=== PATIENT | male | born 1980 | race Caucasian/White ===

== ENCOUNTER 2021-04-06 10:50 | Inpatient (IN) | payer BC, MEDICAID, SELFPAY ==
[2021-04-06 10:52] VITALS: BP 142/82; PULSE 94; RESP 16; TEMP 36.5; O2SAT 96; BMI 21.1
--- NOTE | 2021-04-06 11:09 | EDS_ITS ---
HPI History of Present Illness Chief Complaint: Substance Abuse Detail of Chief Complaint: Requesting detox from alcohol and abscess on left forearm Informant: patient Narrative Narrative: Patient presents to the emergency department complaint of wanting to detox from alcohol. Patient normally drinks 7-8 beers per day. Normally he gets very shaky once he starts to go through withdrawals. His last drink was about midnight. Patient denies any other illicit drug use. Patient complains of a lesion on his left forearm for several days that started to drain today. Denies fevers or recent illness. He is never gone through detox before. [facility] Medical History (Updated 04/06/21 @ 12:[address] uJlian Cisneros, DO) Alcohol abuse Herniated disc Staph skin infection Home Medications alprazolam 0.5 mg PO TID PRN PRN 04/06/21 [History Last Taken Unknown] cetirizine 10 mg PO DAILY 04/06/21 [History Last Taken Unknown] disulfiram 250 mg PO DAILY 04/06/21 [History Last Taken Unknown] Allergy/AdvReac Type Severity Reaction Status Date / Time citalopram AdvReac Upset Verified 04/06/21 11:00 Stomach Social History Smoking Status: Current every day smoker tobacco type: cigarettes ROS ROS ED Constitutional Constitutional ED: Reports systems reviewed and no addt'l complaints, except as documented; Denies body ache(s), change in weight or chills Eyes Eyes: Denies acute decrease in peripheral vision, change in vision, double vision or loss of vision ENT ENT ED: Reports none; Denies ear pain, lip swelling, loss taste/smell, neck pain, otalgia or sore throat Cardiovascular Cardiovascular: Reports none; Denies abdominal pain, chest pain with activity, leg edema, lightheadedness, palpitations, rapid heart rate or syncope Respiratory/Chest Respiratory/Chest: Reports none; Denies change in mental status, dry cough, dyspnea, hemoptysis, shortness of breath at rest or shortness of breath with exertion Gastrointestinal Gastrointestinal: Reports none; Denies abdominal pain, change in stool character, diarrhea, hematemesis, hematochezia, melena, rectal bleeding or vomiting Genitourinary Genitourinary ED: Reports none; Denies abdominal discomfort, anuria, dysuria, genital pain or polyuria Musculoskeletal Musculoskeletal: Reports none; Denies arthralgias, back pain, difficulty walking, extremity pain, muscle weakness or myalgias Integumentary Reports none and abscess; Denies rash Neurologic Neurologic: Reports none; Denies abnormal gait, confusion, focal weakness, frequent falls, headache(s), loss of vision, numbness, paresthesias, radicular pain, vertigo or weakness Psychiatric Psychiatric: Reports systems reviewed and no addt'l complaints, except as documented and none; Denies behavioral changes, confusion, difficulty concentrating, hallucinations, suicidal ideation, tactile hallucinations or visual hallucinations Endocrine Endocrinology: Denies none, cold intolerance, excessive sweating, fatigue or heat intolerance Hematologic/Lymphatic Hematologic/Lymphatic: Reports none; Denies anemia, easy bleeding or easy bruising Allergic/Immunologic Allergic/Immunologic ED: Denies as per HPI, none, lip swelling, mouth swelling, throat swelling, tongue swelling or hives EXAM Physical Exam Const Vital Signs: 04/06/21 10:52 04/06/21 12:31 Temperature 97.7 F L 98.2 F Temperature Source Temporal Temporal Pulse Rate 94 89 Respiratory Rate 16 16 Blood Pressure 142/82 H 138/79 H Blood Pressure Mean 102 98 Blood Pressure Source Monitor Blood Pressure Position Semi-Fowlers Blood Pressure Location Right Arm Pulse Ox 96 99 Oxygen Delivery Method Room Air Room Air Positive well nourished and well developed General Appearance ED: well developed and NAD HEENT Reports TM's clear and moist mucous membranes normocephalic and atraumatic; Negative for trauma or tenderness Tympanic Membrane ED: Yes TM's clear Eyes PERRL and EOMs intact bilaterally General Eye ED: Negative for pale conjunctiva or scleral icterus Neck no lymphadenopathy, supple and no JVD General: Negative for tenderness Chest Wall inspection of chest normal and palpation of chest normal Chest: Negative for tenderness Resp normal respiratory effort and clear to auscultation bilaterally Effort and Inspection: Negative for respiratory distress or pain with movement Auscultation: Negative for rhonchi, wheezes or diminished lung sounds Cardio regular rate, regular rhythm, S1 normal heart sound, S2 normal heart sound and no murmurs Peripheral Pulses: pulses 2+ throughout GI normal to inspection, nondistended, normoactive bowel sounds, soft to palpation, non-tender, non-distended and no masses Back/Spine no CVA tenderness and no thoracic nor lumbar tenderness Extremity Extremity Narrative: Evaluation of left forearm reveals a soft tissue abscess over the volar aspect of the mid forearm that is tender to palpation. Central portion slightly excoriated and draining. Minimal cellulitic changes noted. Neurovascular intact distally. General Extremety ED: Negative for edema General Extremity: Negative for edema Neuro oriented x3, CN's II-XII intact bilaterally, no sensory deficits noted and gait normal Sensorium / Orientation: awake, alert, oriented to person, oriented to place and oriented to time Motor Exam: strength 5/5 throughout and strength abnormal Psych mental status grossly normal Skin no rashes or lesions noted and no wounds MDM MDM MDM Narrative Medical decision making narrative: Case will be discussed with hospitalist evaluate patient for admission for alcohol detox. I did start patient on Keflex and Bactrim. Lab Data Attestation: I reviewed the patient's lab results. Labs: Laboratory Results - last 24 hr 04/06/21 12:20 WBC 8.9 RBC 4.33 L Hgb 13.3 Hct 41.1 MCV 94.9 H MCH 30.7 MCHC 32.4 RDW Std Deviation 41.3 RDW Coeff of [place] 11.8 Plt Count 259 MPV 10.2 Immature Gran % (Auto) 0.200 Neut % (Auto) 73.2 H Lymph % (Auto) 17.6 L [place] % (Auto) 6.7 Eos % (Auto) 1.7 Baso % (Auto) 0.6 Absolute Neuts (auto) 6.5 Absolute Lymphs (auto) 1.56 Nucleated RBC % 0 Procedures Other Procedures Procedure(s): Incision and drainage of abscess on left forearm Area sterilely draped and prepped. Wound anesthetized locally with 1% lidocaine total of 6 cc. Skin cleansed with Shur-Clens. Using an 11 blade a 1.5 cm in cision was made into the most fluctuant portion of the suspected abscess and moderate amount of thick purulent material was expressed. I used curved hemostats to undermine the soft tissues. Cavity was irrigated with saline. Clean dressing applied. Discharge Plan Dx/Rx/DC Orders Clinical Impression: Alcohol abuse, Withdrawn from alcohol detoxification program, Abscess Disposition Disposition: [facility]
--- NOTE | 2021-04-06 12:07 | CM.ED ---
SW Note Referral Source: Case Find Referral Reason: [facility] admission SW met with patient in his room. Patient reports that he is in the hospital for detox from alcohol. Patient said that this is his first time in [facility] program. Patient reports that for the last 2 months he has been trying to get better and related he has two young children and a baby on the way. Patient said that he has tried to cut back on his alcohol use and at times I can go 7-10 days without a drink. Patient said that when he drinks he drinks 7-8 drinks and I only drink [place] Lite. Patient said I don't drink to get drunk.. I can't remember the last time I got drunk. Patient said that he drinks to manage his anxiety as I got alot of things going on. Patient said I have been struggling. Patient said that he talked to Benjaminannette on Monday and they recommended that he go to detox first and then start a program. Patient reports he has tried to get into various inpatient AOD programs but insurance wouldn't approve. Patient said that he has [employer] insurance and [employer] insurance. Patient verbalized understanding of the contract for [facility] which includes no phone contact or visitors and patient verbalized understanding. Patient voiced no concerns regarding the program. Voices he is nervous but that the goal is for him to get better. SW provided emotional support. Plan: Admit to [facility]
--- NOTE | 2021-04-06 12:27 | HP.PCM.HOS_ITS ---
HPI - General General Date of Admission: 04/06/21 Date of Service: 04/06/21 Chief Complaint: EtOH withdrawal, L forearm abscess HPI Narrative The patient is a 40 y/o M w/ PMHx: EtOH abuse who presents to the [facility] on 04/06/21 w/ noted acute EtOH withdrawal, onset starting on day of ED presentation with normal intake of 8-10 beers daily following last EtOH intake near midnight the day prior with onset of tremors, agitation, tactile disturbances. Patient interested in attaining sober status for both himself and his family. He also reports onset of lump, red to his L forearm several days prior which started to drain purulent maternal on day of ED presentation. In the ED CBC, CMP, UDS, EtOH levels pending upon requested evaluation of the patient. In the ED patient administered oral keflex. Patient does state he presented for treatment primarily because he is attempting to repair his relationship with his spouse who is currently . He states he already has rehab in an outpatient setting set up for when he is appropriate for discharge. He states that currently he drinks approximately 7-10 beers ranging from 12 oz to 16 oz and has been more sparingly drinking over the last 5 years but more heavy over the last 2, nearly on a daily basis especially with recent potential relationship issues. [facility] Medical History Alcohol abuse Anxiety and depression Herniated disc Narcotic abuse in remission Staph skin infection Tobacco use Home Medications alprazolam 0.5 mg PO TID PRN PRN 04/06/21 [History Last Taken Unknown] cetirizine 10 mg PO DAILY 04/06/21 [History Last Taken Unknown] disulfiram 250 mg PO DAILY 04/06/21 [History Last Taken Unknown] Allergy/AdvReac Type Severity Reaction Status Date / Time citalopram AdvReac Upset Verified 04/06/21 11:00 Stomach Family History (Updated 04/06/21 @ 14:[address] Homa Mock MD) Mother Asthma Father Diabetes no surgical history Social History (Updated 04/06/21 @ 14:[address] Homa Mock MD) household members: spouse Smoking Status: Current every day smoker tobacco type: cigarettes alcohol intake: current Alcohol type: beer details: Patient drinks 8-10, 12-16 ounce beers daily, intake increasing x 5 years. substance use type: former substance user Date of last use: Reports percocet narcotic abuse history. and opiates ROS ROS Narrative Admission Review of Systems: CONSTITUTIONAL: No weight loss, fever, chills, + weakness or fatigue. HEENT: Eyes: No visual loss, blurred vision, double vision or yellow sclerae. Ears, Nose, Throat: No hearing loss, sneezing, congestion, runny nose or sore throat. SKIN: + LUE mild redness, abscess, TTP CARDIOVASCULAR: No chest pain, chest pressure or chest discomfort, palpitations, edema, orthopnea, syncopal events. RESPIRATORY: No shortness of breath, cough or sputum, wheezing, hemoptysis. GASTROINTESTINAL: + anorexia, nausea, No vomiting or diarrhea, abdominal pain, melena, BRBPR. GENITOURINARY: No dysuria, frequency, urgency or retention. NEUROLOGICAL: + Tremors, tactile disturbances, No headache, dizziness, syncope, paralysis, ataxia, focal weakness, change in bowel or bladder control, seizure. MUSCULOSKELETAL: + muscle, back pain, joint pain or stiffness. HEMATOLOGIC: No anemia, bleeding or bruising. LYMPHATICS: No enlarged nodes. No history of splenectomy. PSYCHIATRIC:+ history of depression or anxiety. ENDOCRINOLOGIC: No reports of sweating, cold or heat intolerance. No polyuria or polydipsia. ALLERGIES: No history of asthma, hives, eczema or rhinitis. Vital Signs Vital Signs Vital Signs: 04/06/21 10:52 Temperature 97.7 F L Temperature Source Temporal Pulse Rate 94 Respiratory Rate 16 Blood Pressure 142/82 H Blood Pressure Mean 102 Pulse Ox 96 Oxygen Delivery Method Room Air Weight Weight: 135 lb Body Mass Index (BMI) 21.1 Physical Exam Narrative Physical Examination: General: Awake, alert, oriented x 3 and cooperative, seated upright in the ED bed, mildly agitated, restless, moving frequently. Skin: Normal color, normal turgor, no icterus, no cyanosis except noted left upper extremity forearm with recent I&D of tissue abscess over the volar aspect of the midforearm, tender to palpation, mild pericellulitic change. HEENT: AT/NC, EOMI, PERRLA, moderately dry MM, no carotid bruits or JVD noted. Lungs: CTA bilaterally, moderate effort, mild decrease BL bases, no rales, ronchi or wheezing. Heart: Mildly tachycardic with regular rhythm; no gallop, rub audible. Abdomen: Soft, thin habitus, NTTP, ND, normal BS, no HSM. Extremities: No cyanosis, clubbing, or edema except left upper extremity, see skin. Neurological: Patient awake, alert, oriented as noted, cognitive function intact; pupils equally reactive to light and accommodation, cranial nerves II- XII grossly normal, moving all 4 extremities, no focal deficits, strength preserved, restless, mildly agitated, mild tremors. Psychiatric: Affect appears restless, anxious, no acute evidence of depressive feelings. Results Lab / Micro Data Result Diagrams: 04/06/21 12:20 04/06/21 12:20 Assessment & Plan Assessment/Plan (1) Abscess: (2) Alcohol abuse: PLAN: The patient is a 40 y/o M w/ PMHx: EtOH abuse who presents to the [facility] on 04/06/21 w/ noted acute EtOH withdrawal, onset starting on day of ED presentation with normal intake of 8-10 beers daily following last EtOH intake near midnight the day prior with additional history of recent LUE abscess with mild cellulitis. 1. Acute EtOH Withdrawal: Will admit to [facility], routine labs obtained in the ED upon presentation and pending upon requested evaluation of patient. Given interest in sobriety, will initiate and continue on protocol with taper course of Phenobarbital, scheduled gabapentin for seizure prophylaxis, as needed Catapres, Bentyl, Vistaril, IV fluids, IV antiemetics, Tylenol as needed for pain. Will consult Case management for assistance for transition to next level of rehabilitation care. Mag, phos pending. Maintain on CIWA protocol concurrently. 2. LUE Extremity Abscess and Mild Cellulitis: Will maintain on oral keflex and bactrim given substance history pending Wound Cx and Wound MRSA PCR, plan repeat CBC in AM, continue affected extremity elevation above heart when seated and in bed, monitor erythema outline with VS checks. De-escalate abx therapy as able. Wound RN consultation and dressings. 3. History of narcotic abuse: Patient denies any prior IV drug abuse but does state that he was in chronic pain management secondary to back pain for 7 years and following this did use purchased Percocet narcotics. He states he no longer abuses these medications however he then does state given recent left upper extremity abscess and cellulitis he did take 3 Percocets on day of current presentation and the day prior secondary to discomfort. UDS is pending upon requested admission. 4. Anxiety and depression: Patient does have history of significant anxiety and states that he was given recently Xanax medication but he is only been using this potentially twice a week. Discussed at length given his abuse history this is a very poorly chosen medicine given his history and very addictive. Discussed plan and given that he honestly states he uses it very rarely will discontinue and discussed plan for case management/social work to work with 180 for counseling and to plan initiation of appropriate SSRI versus SNRI at that time. He does state he had some mild GI side effects with potentially sertraline but unsure. 5. Allergic rhinitis: As needed Claritin if necessary. 6. Tobacco Abuse: Encouraged cessation, inpatient consultation per RT, NR if desired. 7. DVT prophylaxis: Encourage ambulation, low risk. Charges/Coding Visit Charges Inpatient E&M: 38483 Init Hosp L3
[2021-04-06 12:31] VITALS: BP 138/79; PULSE 89; RESP 16; TEMP 36.8; O2SAT 99
--- NOTE | 2021-04-06 12:32 | NURSING ---
DR DAVILA FOR DR MG
[2021-04-06 12:33] LABS: Absolute Lymphocyte Count 1.56 X10^3/uL (0.83-4.51); Absolute Neutrophil Count 6.5 X10^3/uL (2.0-7.7); Basophil# 0.05 X10^3/uL; Basophil% 0.6 % (0-1); Eosinophil# 0.15 X10^3/uL; Eosinophils% 1.7 % (0-5); Hematocrit 41.1 % (40-54); Hemoglobin 13.3 g/dL (13.0-16.5); Lymphocyte # 1.56 X10^3/ul (0.83-4.51); Lymphocyte % 17.6 % (19-41); Mean Corp Hgb Conc 32.4 g/dL (32-36); Mean Corpuscular Hgb 30.7 pg (27.0-32.0); Mean Corpuscular Volume 94.9 fL (80-94); Mean Platelet Vol. 10.2 fl (6.2-12.0); Monocyte# 0.59 X10^3/uL; Monocyte% 6.7 % (0-10); NRBC Flagged by Analyzer 0 % (0-5); Neutrophil # 6.48 X10^3/uL (2.7-7.7); Neutrophil % 73.2 % (47-70); Platelet Count 259 K/mm3 (150-450); RBC Distribution Width CV 11.8 % (11.6-14.6); RBC Distribution Width SD 41.3 fl (35.1-43.9); Red Blood Count 4.33 M/mm3 (4.6-6.2); White Blood Count 8.9 K/mm3 (4.4-11.0)
[2021-04-06 12:39] VITALS: BP 114/62; PULSE 64; RESP 16; TEMP 36.8; O2SAT 99
--- NOTE | 2021-04-06 12:40 | NURSING ---
MED SURG WHITE ETOH DETOX
[2021-04-06 13:00] LABS: ALB/GLOB Ratio 1.3 RATIO (0.9-2.4); AST(SGOT) 12 U/L (15-37); Alanine Aminotransfer ALT/SGPT 23 U/L (16-61); Albumin, Serum 3.8 g/dL (3.2-5.0); Alkaline Phosphatase 75 U/L (45-117); Anion Gap 3 (5-15); BUN 11 mg/dL (7-18); BUN/Creat Ratio 13.7 RATIO (10-20); Calcium,Total 8.4 mg/dL (8.5-10.1); Chloride 105 mmol/L (98-107); EST Glomerular Filtration Rate 114 mL/min (>60); Est Glom Filt Rate - Afr Amer 138 mL/min (>60); Estimated Creatinine Clearance 107.37 ml/min; Glucose 90 mg/dL (74-106); Potassium 4.1 mmol/L (3.5-5.1); Protein, Total 6.8 g/dL (6.4-8.2); Sodium Level 141 mmol/L (136-145)
[2021-04-06 13:06] LABS: Alcohol, Blood (Medical)-Serum < 3.0 mg/dL
[2021-04-06] MEDS: Smz/Tmp Ds Tablet 1 TABLET PO ×2 (13:07→22:08)
[2021-04-06] MEDS: Lidocaine 1% (20 ml mdv) 20 ML Vial 6 ML INFILT (13:07)
[2021-04-06] MEDS: Cephalexin 500 MG Capsule PO ×2 (13:07→18:55)
[2021-04-06 13:22] LABS: Magnesium 2.2 mg/dL (1.6-2.6); Phosphorus 4.2 mg/dL (2.5-4.9)
[2021-04-06 13:39] VITALS: BMI 21.9
[2021-04-06 13:44] VITALS: BP 122/74; PULSE 60; RESP 18; TEMP 36.6; O2SAT 100
[2021-04-06 13:52] LABS: HIV - WCH Non-Reactive (Nonreactive)
[2021-04-06 13:57] LABS: M R Staph aureus DNA By PCR POSITIVE (Negative); Probe Check PASS; Staph aureus DNA By PCR POSITIVE (Negative)
[2021-04-06] MEDS: Phenobarbital 32.4 MG Tablet 64.8 MG PO ×3 (14:07→22:08)
[2021-04-06] MEDS: Lactated Ringers 1,000 ML 125 ML IV (14:07)
[2021-04-06 14:59] LABS: Amphetamine Urine VISTA NEGATIVE (<1000 ng/mL); Barbiturate Urine VISTA NEGATIVE (< 200 ng/mL); Benzodiazepine Urine VISTA NEGATIVE (< 200 ng/mL); Cocaine Urine VISTA NEGATIVE (< 300 ng/mL); Ecstacy Urine VISTA NEGATIVE (< 500 ng/mL); Methadone Urine VISTA NEGATIVE (< 300 ng/mL); PCP Urine VISTA NEGATIVE (< 25 ng/mL); THC Urine VISTA NEGATIVE (< 50 ng/mL); Vista UDS pH Range 6
[2021-04-06 18:50] VITALS: O2SAT 99
[2021-04-06 21:50] VITALS: BP 122/74; PULSE 63; RESP 16; TEMP 37.1; O2SAT 98
[2021-04-06] MEDS: traZODone 100 MG Tablet PO (22:09)
[2021-04-07] MEDS: Cephalexin 500 MG Capsule PO ×4 (01:00→17:54)
[2021-04-07] MEDS: Phenobarbital 32.4 MG Tablet 64.8 MG PO ×6 (01:01→21:36)
[2021-04-07 01:02] VITALS: BP 112/65; PULSE 59; RESP 16; TEMP 36.9; O2SAT 99
[2021-04-07 05:25] VITALS: BP 118/71; PULSE 61; RESP 16; TEMP 36.9; O2SAT 98
--- NOTE | 2021-04-07 06:32 | PN.HOSP_ITS ---
Subjective Subjective Patient with no acute event overnight per self and per nursing report. He notes withdrawal symptoms have significantly improved and he slept very well. Patient's dressing was taken down and he does have some drainage, purulence still from the I&D site performed in the ED. Patient evaluated by wound RN and discussed with plan for placement of wick with expressed material. Erythema has significantly improved since initial ED presentation. Patient denies fevers, chills, nausea, emesis, abdominal pain, chest pain or dyspnea. Objective Data Objective Data Vital Signs: Vital Signs Temp Pulse Resp BP Pulse Ox 98.5 F 61 16 118/71 98 04/07/21 05:25 04/07/21 05:25 04/07/21 05:25 04/07/21 05:25 04/07/21 05:25 Oxygen Delivery Method Room Air Weight: 140 lb 1.59 oz Body Mass Index (BMI) 21.9 Intake & Output: Intake and Output for Last 24 Hours 04/05/21 04/06/21 04/07/21 23:59 23:59 23:59 Intake Total 1180 / 1680 500 / 500 Balance 1180 / 1680 500 / 500 Lab / Micro Data Result Diagrams: 04/07/21 07:03 04/07/21 07:03 Labs: Laboratory Results - last 24 hr 04/06/21 12:20: WBC 8.9, RBC 4.33 L, Hgb 13.3, Hct 41.1, MCV 94.9 H, MCH 30.7, MCHC 32.4, RDW Std Deviation 41.3, RDW Coeff of [place] 11.8, Plt Count 259, MPV 10.2, Immature Gran % (Auto) 0.200, Neut % (Auto) 73.2 H, Lymph % (Auto) 17.6 L, [place] % (Auto) 6.7, Eos % (Auto) 1.7, Baso % (Auto) 0.6, Absolute Neuts (auto) 6.5, Absolute Lymphs (auto) 1.56, Nucleated RBC % 0 04/06/21 12:20: Sodium 141, Potassium 4.1, Chloride 105, Carbon Dioxide 33.0 H, Anion Gap 3 L, BUN 11, Creatinine 0.80, Estim Creat Clear Calc 107.37, Est GFR (MDRD) Af Amer 138, Est GFR (MDRD) Non-Af 114, BUN/Creatinine Ratio 13.7, Gl ucose 90, Calcium 8.4 L, Total Bilirubin 0.20, AST 12 L, ALT 23, Alkaline Phosphatase 75, Total Protein 6.8, Albumin 3.8, Globulin 3.0, Albumin/Globulin R atio 1.3 04/06/21 12:20: Ethyl Alcohol < 3.0 04/06/21 12:20: Phosphorus 4.2, Magnesium 2.2 04/06/21 12:20: HIV 1&2 Antibody Non-Reactive 04/06/21 12:35: S.aureus Protein A PCR POSITIVE H, MRSA (PCR) POSITIVE H 04/06/21 14:00: Urine Opiates Screen POSITIVE H, Urine Methadone Screen NEGATIVE, Ur Barbiturates Screen NEGATIVE, Ur Phencyclidine Scrn NEGATIVE, Ur Amphetamines Screen NEGATIVE, U Methamphetamin-MDMA NEGATIVE, U Benzodiazepines Scrn NEGATIVE, Urine Cocaine Screen NEGATIVE, U Cannabinoids Screen NEGATIVE, Ur Drug Screen Comment Micro: Microbiology 04/06/21 12:35 Wound Abcess - Arm Left Gram Stain - Final Physical Exam Narrative Physical Examination: General: Awake, alert, oriented x 3 and cooperative, seated upright in the PCU bed, more calm, no acute distress. Skin: Normal color, normal turgor, no icterus, no cyanosis except noted left upper extremity forearm with recent I&D of tissue abscess over the volar aspect of the midforearm, waste machine tender to palpation, improvement of prior cellulitic region, some purulent material able to be expressed, wound RN evaluation ongoing with with being placed. HEENT: AT/NC, EOMI, PERRLA, improved MMM. Lungs: CTA bilaterally, moderate effort, mild decrease BL bases, no rales, ronchi or wheezing. Heart: Improved, regular rate and regular rhythm; no gallop, rub audible. Abdomen: Soft, thin habitus, NTTP, ND, normal BS. Extremities: No cyanosis, clubbing, or edema except left upper extremity, see skin. Neurological: Patient awake, alert, oriented as noted, cognitive function intact; pupils equally reactive to light and accommodation, cranial nerves II- XII grossly normal, moving all 4 extremities although some limitation left upper extremity given recent I&D, no focal deficits, strength preserved, improving. Psychiatric: Affect appears more calm, no acute evidence of depressive feelings. Assessment & Plan Assessment/Plan (1) Abscess: (2) Alcohol abuse: PLAN: The patient is a 40 y/o M w/ PMHx: EtOH abuse who presents to the [facility] on 04/06/21 w/ noted acute EtOH withdrawal, onset starting on day of ED pre sentation with normal intake of 8-10 beers daily following last EtOH intake near midnight the day prior with additional history of recent LUE abscess with mild cellulitis. 1. Acute EtOH Withdrawal: Patient admitted to medical surgical floor, routine labs obtained in the ED upon presentation including UDS with positive opiates, ethyl alcohol level unremarkable. Given interest in sobriety patient was initiated and continued on protocol with taper course of Phenobarbital, scheduled gabapentin for seizure prophylaxis, as needed Catapres, Bentyl, Vistaril, IV fluids, IV antiemetics, Tylenol as needed for pain. Will consult Case management for assistance for transition to next level of rehabilitation care. Mag, phos obtained and both noted to be normal. Maintain on CIWA protocol concurrently. 2. LUE Extremity MRSA Abscess and Cellulitis: Initiated on oral Keflex and Bactrim given history, wound culture pending, wound MRSA positive, continue extremity elevation, dressing changes, wound RN evaluation 04/07/2020 1 AM with ability to express additional material, with will be placed with continued dressing care. Will alter antibiotic regimen pending wound culture as noted. 3. History of narcotic abuse: Patient denies any prior IV drug abuse but does state that he was in chronic pain management secondary to back pain for 7 years and following this did use purchased Percocet narcotics. He states he no longer abuses these medications however he then does state given recent left upper extremity abscess and cellulitis he did take 3 Percocets on day of current presentation and the day prior secondary to discomfort. UDS with positive opiates. 4. Anxiety and depression: Patient does have history of significant anxiety and states that he was given recently Xanax medication but he is only been using this potentially twice a week. Discussed at length given his abuse history this is a very poorly chosen medicine given his history and very addictive. Discussed plan and given that he honestly states he uses it very rarely will discontinue and discussed plan for case management/social work to work with 180 for counseling and to plan initiation of appropriate SSRI versus SNRI at that time. He does state he had some mild GI side effects with potentially sertraline but unsure. 5. Allergic rhinitis: As needed Claritin if necessary. 6. Tobacco Abuse: Encouraged cessation, inpatient consultation per RT, NR if desired. 7. DVT prophylaxis: Encourage ambulation, low risk. Charges/Coding Visit Charges Inpatient E&M: 47098 Subs Hosp L2
[2021-04-07 07:14] LABS: Absolute Lymphocyte Count 1.88 X10^3/uL (0.83-4.51); Absolute Neutrophil Count 4.1 X10^3/uL (2.0-7.7); Basophil# 0.05 X10^3/uL; Basophil% 0.7 % (0-1); Eosinophil# 0.15 X10^3/uL; Eosinophils% 2.2 % (0-5); Hemoglobin 13.1 g/dL (13.0-16.5); Lymphocyte # 1.88 X10^3/ul (0.83-4.51); Mean Corp Hgb Conc 32.8 g/dL (32-36); Mean Corpuscular Hgb 30.6 pg (27.0-32.0); Mean Corpuscular Volume 93.5 fL (80-94); Mean Platelet Vol. 9.8 fl (6.2-12.0); Monocyte# 0.49 X10^3/uL; Monocyte% 7.3 % (0-10); NRBC Flagged by Analyzer 0 % (0-5); Neutrophil # 4.12 X10^3/uL (2.7-7.7); Neutrophil % 61.4 % (47-70); Platelet Count 233 K/mm3 (150-450); RBC Distribution Width CV 11.9 % (11.6-14.6); RBC Distribution Width SD 41.1 fl (35.1-43.9); Red Blood Count 4.28 M/mm3 (4.6-6.2); White Blood Count 6.7 K/mm3 (4.4-11.0)
[2021-04-07 07:47] LABS: ALB/GLOB Ratio 1.2 RATIO (0.9-2.4); AST(SGOT) 11 U/L (15-37); Alanine Aminotransfer ALT/SGPT 19 U/L (16-61); Albumin, Serum 3.4 g/dL (3.2-5.0); Alkaline Phosphatase 64 U/L (45-117); Anion Gap 4 (5-15); BUN 9 mg/dL (7-18); BUN/Creat Ratio 12.8 RATIO (10-20); Calcium,Total 8.3 mg/dL (8.5-10.1); Chloride 106 mmol/L (98-107); EST Glomerular Filtration Rate 132 mL/min (>60); Est Glom Filt Rate - Afr Amer 160 mL/min (>60); Estimated Creatinine Clearance 127.35 ml/min; Globulin 2.8 g/dL (2.2-4.2); Glucose 93 mg/dL (74-106); Potassium 3.9 mmol/L (3.5-5.1); Protein, Total 6.2 g/dL (6.4-8.2); Sodium Level 139 mmol/L (136-145)
[2021-04-07 08:37] VITALS: O2SAT 98
--- NOTE | 2021-04-07 09:04 | ADDICTION ---
This senior underwriter attempted to meet with PT to conduct ASAM, MSE, AUDIT assessments and to plan for d/c. PT did not rouse to 3x attempts at verbal queuing. This senior underwriter will attempt to meet with PT at next visit on 04/08/21.
[2021-04-07] MEDS: Multivitamins,Therapeutic Tablet 1 TABLET PO (10:30)
[2021-04-07] MEDS: Folic Acid 1 MG Tablet PO (10:30)
[2021-04-07] MEDS: Loratadine 10 MG Tablet PO (10:30)
[2021-04-07] MEDS: Thiamine Hydrochloride 100 MG Tablet PO (10:31)
[2021-04-07] MEDS: Smz/Tmp Ds Tablet 1 TABLET PO ×2 (10:31→18:02)
[2021-04-07] MEDS: Ibuprofen 600 MG Tablet PO ×2 (10:40→19:30)
--- NOTE | 2021-04-07 11:57 | NURSING ---
wound photo: left forearm
[2021-04-07] MEDS: Acetaminophen 325 MG Tablet 650 MG PO (12:57)
[2021-04-07 14:00] VITALS: BP 118/71; PULSE 61; RESP 16; TEMP 36.6; O2SAT 98
--- NOTE | 2021-04-07 15:38 | CHAPLAIN ---
Type of Pastoral Visit _x__ Initial Visit ___ Follow-up Visit ___ On-call Visit ___ General Patient Visit ___ Spiritual Assessment ___ Family Conference ___ Bereavement ___ Rapid Response ___ Code Blue ___ Other (describe below) Pastoral Care Referral From _x__ Patient ___ Family ___ Nurse ___ Physician ___ Sales Account Leader ___ Stenotype Machine Operator ___ Other (describe below) Sacrament/Intervention _x__ Active listening ___ Anointing ___ Adventist ___ Bereavement ___ Communion _x__ Anat exploration ___ _x__ Life review _x__ Prayer ___ Reconciliation ___ Sacrament of Sick _x__ Supportive presence ___ Wedding ___ Other (describe below) Pastoral Comments patient was sleeping but awoke to his name and he welcomed the visit; patient identifies himself as a Rastafarian and wants spiritual care support; pt gives much information about his situation including home life and family relationships; pt gives some life history and summary of his beliefs; pt goal is to come clean and to have family united; pt has thought processes to work on he says; pt states that he has many people that are supportive of him although he feels alone at this time; pt seeks guidance from the Bible and prayer; pt is open to further meetings of support with this online marketing coordinator; pt requested that his yard crane operator be contacted to notify of admission; yard crane operator was contacted although aware that no visitors are permitted at this time for pt
[2021-04-07 20:37] VITALS: BP 122/77; PULSE 86; RESP 16; TEMP 36.7; O2SAT 99
[2021-04-07] MEDS: hydrOXYzine PAM 25 MG Capsule 50 MG PO (20:42)
[2021-04-07] MEDS: traZODone 100 MG Tablet PO (21:35)
[2021-04-07] MEDS: 0.9% Saline Lock 10 ML Syringe IV (21:35)
[2021-04-08] MEDS: Cephalexin 500 MG Capsule PO ×3 (00:40→12:56)
[2021-04-08 02:35] VITALS: BP 109/68; PULSE 70; RESP 16; TEMP 36.5; O2SAT 96
[2021-04-08] MEDS: Phenobarbital 32.4 MG Tablet 64.8 MG PO ×3 (02:39→10:03)
--- NOTE | 2021-04-08 06:30 | PCM.PN.HOSP ---
Objective Data Objective Data Vital Signs: Vital Signs Temp Pulse Resp BP Pulse Ox 97.7 F L 70 16 109/68 96 04/08/21 02:35 04/08/21 02:35 04/08/21 02:35 04/08/21 02:35 04/08/21 02:35 Oxygen Delivery Method Room Air Weight: 140 lb 1.59 oz Body Mass Index (BMI) 21.9 Intake & Output: Intake and Output for Last 24 Hours 04/06/21 04/07/21 04/08/21 23:59 23:59 23:59 Intake Total 1180 / 1680 1300 / 1300 600 / 600 Balance 1180 / 1680 1300 / 1300 600 / 600 Lab / Micro Data Result Diagrams: 04/07/21 07:03 04/07/21 07:03 Labs: Laboratory Results - last 24 hr 04/07/21 07:03: WBC 6.7, RBC 4.28 L, Hgb 13.1, Hct 40.0, MCV 93.5, MCH 30.6, MCHC 32.8, RDW Std Deviation 41.1, RDW Coeff of [place] 11.9, Plt Count 233, MPV 9.8, Immature Gran % (Auto) 0.400, Neut % (Auto) 61.4, Lymph % (Auto) 28.0, [place] % (Auto) 7.3, Eos % (Auto) 2.2, Baso % (Auto) 0.7, Absolute Neuts (auto) 4.1, Absolute Lymphs (auto) 1.88, Nucleated RBC % 0 04/07/21 07:03: Sodium 139, Potassium 3.9, Chloride 106, Carbon Dioxide 29.0, Anion Gap 4 L, BUN 9, Creatinine 0.70, Estim Creat Clear Calc 127.35, Est GFR (MDRD) Af Amer 160, Est GFR (MDRD) Non-Af 132, BUN/Creatinine Ratio 12.8, Glucose 93, Calcium 8.3 L, Total Bilirubin 0.20, AST 11 L, ALT 19, Alkaline Phosphatase 64, Total Protein 6.2 L, Albumin 3.4, Globulin 2.8, Albumin/Globulin Ratio 1.2 Micro: Microbiology 04/06/21 12:35 Wound Abcess - Arm Left Gram Stain - Final 04/06/21 12:35 Wound Abcess - Arm Left Wound Culture - Preliminary Staphylococcus aureus
[2021-04-08 06:56] LABS: Absolute Lymphocyte Count 2.24 X10^3/uL (0.83-4.51); Absolute Neutrophil Count 3.8 X10^3/uL (2.0-7.7); Basophil# 0.04 X10^3/uL; Basophil% 0.6 % (0-1); Eosinophils% 2.9 % (0-5); Hematocrit 40.2 % (40-54); Hemoglobin 13.1 g/dL (13.0-16.5); Lymphocyte # 2.24 X10^3/ul (0.83-4.51); Lymphocyte % 32.7 % (19-41); Mean Corp Hgb Conc 32.6 g/dL (32-36); Mean Corpuscular Hgb 30.8 pg (27.0-32.0); Mean Corpuscular Volume 94.4 fL (80-94); Mean Platelet Vol. 10.1 fl (6.2-12.0); Monocyte# 0.55 X10^3/uL; NRBC Flagged by Analyzer 0 % (0-5); Neutrophil % 55.5 % (47-70); Platelet Count 251 K/mm3 (150-450); RBC Distribution Width CV 11.9 % (11.6-14.6); RBC Distribution Width SD 40.8 fl (35.1-43.9); Red Blood Count 4.26 M/mm3 (4.6-6.2); White Blood Count 6.9 K/mm3 (4.4-11.0)
[2021-04-08 07:29] LABS: ALB/GLOB Ratio 1.1 RATIO (0.9-2.4); AST(SGOT) 10 U/L (15-37); Alanine Aminotransfer ALT/SGPT 22 U/L (16-61); Albumin, Serum 3.3 g/dL (3.2-5.0); Alkaline Phosphatase 61 U/L (45-117); Anion Gap 6 (5-15); BUN 15 mg/dL (7-18); BUN/Creat Ratio 15.7 RATIO (10-20); Calcium,Total 7.9 mg/dL (8.5-10.1); Chloride 106 mmol/L (98-107); Creatinine, Serum 0.95 mg/dL (0.70-1.30); EST Glomerular Filtration Rate 93 mL/min (>60); Est Glom Filt Rate - Afr Amer 113 mL/min (>60); Estimated Creatinine Clearance 93.84 ml/min; Globulin 2.9 g/dL (2.2-4.2); Glucose 95 mg/dL (74-106); Potassium 3.9 mmol/L (3.5-5.1); Protein, Total 6.2 g/dL (6.4-8.2); Sodium Level 139 mmol/L (136-145)
[2021-04-08 08:30] VITALS: BP 119/66; PULSE 91; RESP 14; TEMP 36.8; O2SAT 100
--- NOTE | 2021-04-08 09:33 | ADDICTION ---
this senior copywriter met with PT to conduct ASAM, MSE, AUDIT, DUDIT assessments and to plan for d/c. PT A+Ox4 and actively participated. All assessments completed. D/c plan completed. PT to follow-up with [facility] for assessment and ongoing treatment. This senior copywriter will facilitate coordination with [facility] prior to d/c.
[2021-04-08] MEDS: Multivitamins,Therapeutic Tablet 1 TABLET PO (10:02)
[2021-04-08] MEDS: Thiamine Hydrochloride 100 MG Tablet PO (10:02)
[2021-04-08] MEDS: Smz/Tmp Ds Tablet 1 TABLET PO (10:02)
[2021-04-08] MEDS: Loratadine 10 MG Tablet PO (10:02)
[2021-04-08] MEDS: Folic Acid 1 MG Tablet PO (10:02)
[2021-04-08] MEDS: Ibuprofen 600 MG Tablet PO (10:19)
--- NOTE | 2021-04-08 11:41 | PCM.DC.SUM ---
Providers Date of Admission: 04/06/21 Primary Care Physician: Dr. Louie Rowe MD Consultations 04/06/21 13:38 Consult: Onc/Wound/styrene dehydration reactor operator Routine Comment: Reason For Visit: ACUTE ETOH WITHDRAWAL / LUE ABSCESS Diagnosis Discharge Diagnosis (1) Abscess: Status: Acute Code(s): L02.91 - Cutaneous abscess, unspecified (2) Alcohol abuse: Status: Acute Code(s): F10.10 - Alcohol abuse, uncomplicated Medications at Discharge Home Medications cetirizine 10 mg PO DAILY 04/06/21 nicotine 14 mg TRANSDERMAL DAILY 14 Days #14 ea 04/08/21 sulfamethoxazole-trimethoprim 1 tab PO BIDCM 12 Days #24 tab 04/08/21 Hospital Course Operations None Procedures - (ED I+D) Summary of Care Provided Minutes Spent on Discharge: 35 Hospital Course: Discharge Diagnoses: 1. Acute EtOH Withdrawal 2. LUE Extremity MRSA Abscess and Cellulitis 3. History of narcotic abuse 4. Anxiety and depression 5. Allergic rhinitis 6. Tobacco Abuse Discharge Summary: The patient is a 40 y/o M w/ PMHx: EtOH abuse who presents to the [facility] on 04/06/21 w/ noted acute EtOH withdrawal, onset starting on day of ED presentation with normal intake of 8-10 beers daily following last EtOH intake near midnight the day prior with additional history of recent LUE abscess with mild cellulitis. Patient admitted to medical surgical floor, routine labs obtained in the ED upon presentation including UDS with positive opiates, ethyl alcohol level unremarkable. Given interest in sobriety patient was initiated and continued on protocol with taper course of Phenobarbital, scheduled gabapentin for seizure prophylaxis, as needed Catapres, Bentyl, Vistaril, IV fluids, IV antiemetics, Tylenol as needed for pain. Mag, phos obtained and both noted to be normal. Patient upon ED presentation with evidence of left upper extremity abscess and cellulitis with I&D performed in the ED with wound culture and MRSA wound culture sent noted to be positive for MSRA eventually noted to be sensitive to Bactrim, initially placed on oral Keflex and Bactrim with dressing changes and wound RN evaluation. Patient does have history of significant anxiety and states that he was given recently Xanax medication but he is only been using this potentially twice a week. Discussed at length given his abuse history this is a very poorly chosen medicine given his history and very addictive. Discussed plan and given that he honestly states he uses it very rarely will discontinue and discussed plan for case management/social work to work with [facility] for counseling and to plan initiation of appropriate SSRI versus SNRI at that time. Patient noted feeling well and no further withdrawal symptoms therefore declined to remain for continued inpatient treatment noting he also had outpatient rehab already set up therefore patient discharged to home on continued regimen of Bactrim with continued dressing changes with education given including packing until completely resolved. Patient did decline wound care center offer. Strongly encouraged continued sobriety and clean state. Discharge Time: > 35 Minutes DAY OF DISCHARGE PROGRESS NOTE: Subjective: Patient without acute event overnight per self and nursing report. Patient patient does report discomfort of the left upper extremity, primarily with dressing change but improved, with less discharge and resolving cellulitis. Denies fever, chills, nausea, emesis, abdominal pain, chest pain or dyspnea. Patient specifically requesting discharge to home, declined remain for full treatment withdrawal program. Patient will be discharged with follow-up with primary care physician in addition to continue follow-up with [facility]. Objective: T 98.2, heart rate 91, BP 119/66, respiratory rate 14, and percent room air. Physical Examination: General: awake, alert, oriented x 3 and cooperative, seated upright in the bed, NAD. Skin: normal color, normal turgor, no icterus, no cyanosis except left upper extremity status post I&D with small incision, able to express minimal material, cleaned and iodoform packed, resolving cellulitis, resolving prior noted edema. HEENT: AT/NC, EOMI, PERRLA, MMM. Lungs: CTA bilaterally, moderate effort, mild decrease BL bases, no rales, ronchi or wheezing; Heart: Regular rate and rhythm; no gallop, rub audible. Abdomen: soft, NTTP, ND, normal BS. Extremities: no cyanosis, clubbing, or edema. Neurological: patient awake, alert, oriented x 3; cognitive function appears intact upon questioning,; pupils equally reactive to light and accomodation; cranial nerves II-XII grossly normal, moving all 4 extremities even left upper extremity although somewhat diminished given significant pain with recent dressing change, strength appropriate. Psychiatric: affect appears normal, adamantly states feeling appropriate for discharge and declines to stay for full withdrawal treatment program, no acute evidence of depressive or anxiety feelings currently, underlying history. Assessment and Plan: Please see hospital summary above. Weight / BMI Weight Weight: 140 lb 1.59 oz Body Mass Index (BMI) 21.9 ABG / Lab / Microbiology Data Result Diagrams: 04/08/21 06:35 04/08/21 06:35 Laboratory: Laboratory Results - last 24 hr 04/08/21 06:35: WBC 6.9, RBC 4.26 L, Hgb 13.1, Hct 40.2, MCV 94.4 H, MCH 30.8, MCHC 32.6, RDW Std Deviation 40.8, RDW Coeff of [place] 11.9, Plt Count 251, MPV 10.1, Immature Gran % (Auto) 0.300, Neut % (Auto) 55.5, Lymph % (Auto) 32.7, [place] % (Auto) 8.0, Eos % (Auto) 2.9, Baso % (Auto) 0.6, Absolute Neuts (auto) 3.8, Absolute Lymphs (auto) 2.24, Nucleated RBC % 0 04/08/21 06:35: Sodium 139, Potassium 3.9, Chloride 106, Carbon Dioxide 27.0, Anion Gap 6, BUN 15, Creatinine 0.95, Estim Creat Clear Calc 93.84, Est GFR (MDRD) Af Amer 113, Est GFR (MDRD) Non-Af 93, BUN/Creatinine Ratio 15.7, Glucose 95, Calcium 7.9 L, Total Bilirubin 0.20, AST 10 L, ALT 22, Alkaline Phosphatase 61, Total Protein 6.2 L, Albumin 3.3, Globulin 2.9, Albumin/Globulin Ratio 1.1 Microbiology: Microbiology 04/06/21 12:35 Wound Abcess - Arm Left Gram Stain - Final 04/06/21 12:35 Wound Abcess - Arm Left Wound Culture - Final Meth. resistant Staph. aureus D/C Instructions Discharge Diet: No restrictions Call your doctor if your incision/area has: Continuous Slow Oozing, Sudden Increased Bleeding, Increased Pain/ Swelling, Increased Redness, Foul Smelling Discharge and Swelling at the incision site Call your doctor if you observe: Fever of 101 or Higher, Numbness or Tingling, Shortness of breath, Dizziness, Fainting spells, Chest pain, Increased palpitations (irregular heartbeat) and Uncontrolled pain Meaningful Use Info Meaningful Use Diagnoses (Choose all that apply): None applicable Discharge Plan Admission Admit Date/Time: 04/06/21 13:04 Primary Reason for Your Visit: Acute EtOH withdrawal, LUE MRSA Abscess/Cellulitis Attending Provider: Homa Mock Primary Care Provider: Louie Rowe Instructions Patient Instructions: Alcoholism: Getting Help, Alcohol Addiction, Planning to Quit Smoking, Abscess Drainage, MRSA Infec Additional Instructions / Restrictions: DRESSING CHANGES: Please continue to perform daily dressing changes with iodoform packing as demonstrated in the hospital, 4 x 4 dry dressing and Kerlix wrap over preferably twice daily and as needed if dressing becomes soiled. Dressings may be discontinued once skin has completely healed or directed by a physician. If there is no region to pack then continue doing dry dressings with no packing at that time. Please assure that prior to each dressing you clean the region with soap and water, washing her hands of course before each dressing. IMPORTANT: DISCUSSED DO NOT TAKE XANAX. This has been stopped as you noted only having been on this medication for ~ 1 month and mentioned taking it only 1-2x per week. You are prone to become addicted to this type of medication and should not be taking this for anxiety. Other medications are available for anxiety and will be assessed at your follow-up with [facility]. Discharge Orders/Prescriptions Prescriptions: New nicotine 14 mg/24 hr Patch 24 Hour 14 mg transdermal DAILY 14 Days Qty: 14 RF: 0 sulfamethoxazole-trimethoprim 800-160 mg Tablet 1 tab PO BIDCM 12 Days Qty: 24 RF: 0 Continued cetirizine 10 mg tablet 10 mg PO DAILY RF: 0 Discontinued disulfiram 250 mg tablet 250 mg PO DAILY RF: 0 alprazolam 0.5 mg tablet 0.5 mg PO TID PRN PRN (Reason: Anxiety) RF: 0 Referrals / Follow Up: Louie Rowe MD [Primary Care Provider] - (Please follow-up within 3-5 days to review admission.) Disposition Disposition (needs filled in before D/C Order can be placed): Home, Self Care Charges/Coding Visit Charges Inpatient E&M: 05095 Disch Hosp
[2021-04-08 11:54] VITALS: O2SAT 96
[2021-04-09 12:09] LABS: HEPATITIS B SURFACE AG Negative (Negative); Hepatitis B Core AB IgM Negative (Negative); Hepatitis B Core Ab Total Positive (Negative); Hepatitis Be Ab Negative (Negative); Hepatitis Be Ag Negative (Negative); Hepatitis C Ab <0.1 s/co ratio (0.0-0.9)
[2021-04-09 13:33] LABS: Hep B Surface Antibodies Reactive (.)
== END 2021-04-08 13:46 | disposition home or self-care (01) | DRG 897 ==
LOC: ED 12:29 → PCU 17:04
PROVIDERS: Admitting Provider Family Medicine; Emergency Provider Emergency Medicine; PCP Family Medicine; Visit Provider Family Medicine
DX: F10.239 Alcohol dependence with withdrawal, unspecified (principal); L02.414 Cutaneous abscess of left upper limb; L03.114 Cellulitis of left upper limb; F17.210 Nicotine dependence, cigarettes, uncomplicated; F32.9 Major depressive disorder, single episode, unspecified; F41.9 Anxiety disorder, unspecified; J30.9 Allergic rhinitis, unspecified; A49.02 Methicillin resistant Staphylococcus aureus infection, unspecified site; F11.10 Opioid abuse, uncomplicated; Y90.9 Presence of alcohol in blood, level not specified
CPT/HCPCS: 10060; 36415; 80053; 80307; 82077; 83735; 84100; 85025; 86703; 86704; 86705; 86706; 86707; 86803; 87070; 87077; 87186; 87205; 87340; 87350; 87640; 97802; 99284; J7120; A4216

== ENCOUNTER 2022-02-14 11:41 | Inpatient (IN) | payer BC, MEDICAID, SELFPAY ==
[2022-02-14 11:42] VITALS: BP 132/74; PULSE 73; RESP 18; TEMP 36.4; O2SAT 100; BMI 21.9
--- NOTE | 2022-02-14 12:00 | EDS_ITS ---
HPI History of Present Illness Chief Complaint: ETOH Intox Informant: patient Narrative Narrative: Is a 41-year-old male with history of alcohol as well as opioid abuse and anxiety presenting with request for detox. Patient was admitted on 04/06 to the for alcohol detox. Patient states after that he went to [facility] into [facility]. He states he started drinking gradually couple months ago but is now drinking 8 to 1216 ounce [place] a day. He states he also had some type of mixed drink last night as well. Last drink was around midnight or 1 AM today. 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 He states he was fired from Suboxone because of his alcohol use but has been taking it regularly from a friend. He states he last had it yesterday. He states he normally takes it every other day if he can if not every few days. Patient does admit to using cocaine 2 days ago. Denies any other drug use. Vapes tobacco. Has no physical complaints at this time. States his plan is to go directly to [facility] after inpatient detox. He states he currently sees them for IOP and counseling as well. [facility] Medical History Abscess Alcohol abuse Alcohol abuse Anxiety and depression Herniated disc Narcotic abuse in remission Staph skin infection Tobacco use Withdrawn from alcohol detoxification program Home Medications cetirizine 10 mg PO DAILY 04/06/21 [History Last Taken Unknown] buspirone 10 mg PO BID 02/14/22 [History Last Taken Unknown] citalopram 40 mg PO DAILY 02/14/22 [History Last Taken Unknown] fluticasone propionate 2 spray INTRANASAL DAILY 02/14/22 [History Last Taken Unknown] lisdexamfetamine [Vyvanse] 70 mg PO DAILY 02/14/22 [History Last Taken Unknown] Allergy/AdvReac Type Severity Reaction Status Date / Time No Known Allergies Allergy Verified 02/14/22 11:44 Family History Mother Asthma Father Diabetes Social History household members: spouse Smoking Status: Current every day smoker tobacco type: e-cigarettes alcohol intake: current Alcohol type: beer details: Patient drinks 8-10, 12-16 ounce beers daily, intake increasing x 5 years. substance use type: former substance user Date of last use: Reports percocet narcotic abuse history. and opiates ROS ROS ED Constitutional Constitutional ED: Denies chills or fever(s) Eyes Eyes: Denies change in vision Cardiovascular Cardiovascular: Denies chest pain Respiratory/Chest Respiratory/Chest: Denies dyspnea Gastrointestinal Gastrointestinal: Denies abdominal pain or vomiting Musculoskeletal Musculoskeletal: Reports back pain; Denies arthralgias or myalgias Integumentary Denies rash Neurologic Neurologic: Denies headache(s) or weakness Psychiatric Psychiatric: Reports anxiety; Denies depression, suicidal ideation or suicidal thoughts EXAM Physical Exam Const Vital Signs: 02/14/22 11:42 Temperature 97.5 F L Temperature Source Temporal Pulse Rate 73 Respiratory Rate 18 Blood Pressure 132/74 H Blood Pressure Mean 93 Pulse Ox 100 Oxygen Delivery Method Room Air Positive well nourished and well developed General Appearance ED: well developed and NAD HEENT atraumatic Eyes PERRL and EOMs intact bilaterally Neck supple Chest Wall inspection of chest normal Resp normal respiratory effort and clear to auscultation bilaterally Cardio regular rate, regular rhythm and no murmurs GI soft to palpation and non-tender Extremity General Extremety ED: Negative for edema or tenderness General Extremity: Negative for edema Neuro oriented x3 Sensorium / Orientation: alert Gait (Neuro): normal gait Motor Exam: Negative for general weakness Psych mental status grossly normal and thought process normal Skin Lesions: no lesions Rashes: no rashes MDM MDM MDM Narrative Medical decision making narrative: Patient evaluated for request of alcohol detox. Patient also has regular Suboxone use that he gets through an acquaintance. Patient will be medically cleared. He currently is not having any active withdrawal symptoms. We will contact for admission. Discharge Plan Triage Chief Complaint: ETOH Intox Other Complaint: Substance Abuse ED Provider: Lauren Aguilera Dx/Rx/DC Orders Clinical Impression: Alcohol dependence, Opioid dependence Prescriptions: No Action cetirizine 10 mg tablet 10 mg PO DAILY RF: 0 citalopram 40 mg tablet 40 mg PO DAILY RF: 0 buspirone 10 mg tablet 10 mg PO BID RF: 0 fluticasone propionate 50 mcg/actuation spray,suspension 2 spray INTRANASAL DAILY RF: 0 Vyvanse 70 mg capsule 70 mg PO DAILY RF: 0 Primary Care Provider: Louie Rowe Referrals: Louie Rowe MD [Primary Care Provider] - Disposition Disposition: Acute Care Hospital [facility]
--- NOTE | 2022-02-14 12:31 | CM.ED ---
Social Work Note Reason for Referral: ETOH Detox SW met with pt. SW introduced self and role at [facility]. Pt states he is at [facility] for detox. Pt states that he has been admitted to detox before at [facility] and aware of the rules. Pt states that he has been drinking 8-12 beers daily. Pt states he is interested in residential treatment at discharge. SW placed a call to Leelee, Addiction therapist, and updated her on referral. Karen Godinez REAMING MACHINE OPERATOR FOR PLASTIC, INNERSOLE FITTER
[2022-02-14 12:32] LABS: Absolute Lymphocyte Count 1.99 X10^3/uL (0.83-4.51); Absolute Neutrophil Count 4.2 X10^3/uL (2.0-7.7); Basophil# 0.04 X10^3/uL; Basophil% 0.6 % (0-1); Eosinophil# 0.09 X10^3/uL; Eosinophils% 1.3 % (0-5); Hematocrit 38.9 % (40-54); Hemoglobin 12.9 g/dL (13.0-16.5); Lymphocyte # 1.99 X10^3/ul (0.83-4.51); Mean Corp Hgb Conc 33.2 g/dL (32-36); Mean Corpuscular Hgb 31.4 pg (27.0-32.0); Mean Corpuscular Volume 94.6 fL (80-94); Mean Platelet Vol. 9.3 fl (6.2-12.0); Monocyte# 0.57 X10^3/uL; Monocyte% 8.3 % (0-10); NRBC Flagged by Analyzer 0 % (0-5); Neutrophil # 4.15 X10^3/uL (2.7-7.7); Neutrophil % 60.5 % (47-70); Platelet Count 239 K/mm3 (150-450); RBC Distribution Width CV 11.8 % (11.6-14.6); RBC Distribution Width SD 40.3 fl (35.1-43.9); Red Blood Count 4.11 M/mm3 (4.6-6.2); White Blood Count 6.9 K/mm3 (4.4-11.0)
[2022-02-14 12:41] LABS: ALB/GLOB Ratio 1.2 RATIO (0.9-2.4); AST(SGOT) 16 U/L (15-37); Alanine Aminotransfer ALT/SGPT 23 U/L (16-61); Albumin, Serum 3.8 g/dL (3.2-5.0); Alkaline Phosphatase 62 U/L (45-117); Anion Gap 3 (5-15); BUN 12 mg/dL (7-18); BUN/Creat Ratio 16.6 RATIO (10-20); Calcium,Total 8.5 mg/dL (8.5-10.1); Chloride 99 mmol/L (98-107); Creatinine, Serum 0.72 mg/dL (0.70-1.30); EST Glomerular Filtration Rate 128 mL/min (>60); Est Glom Filt Rate - Afr Amer 154 mL/min (>60); Globulin 3.1 g/dL (2.2-4.2); Glucose 82 mg/dL (74-106); Potassium 4.3 mmol/L (3.5-5.1); Protein, Total 6.9 g/dL (6.4-8.2); Sodium Level 133 mmol/L (136-145)
[2022-02-14 12:58] VITALS: BP 132/74; PULSE 89; RESP 16; TEMP 36.6; O2SAT 98
--- NOTE | 2022-02-14 13:26 | HP.PCM.HOS_ITS ---
HPI - General General Date of Admission: 02/14/22 Date of Service: 02/14/22 Chief Complaint: Requesting treatment for opiate and alcohol dependence HPI Narrative RED YOU, is a 41 M who presents presents seeing treatment for opiate and alcohol dependence. Patient drinks 8-12 beers per day but can go a day without drinking but does focus on it but does not have any obvious physical withdrawal symptoms that he relates. Patient is also taking Suboxone that he gets on the street. States that he does have some days where he does not take any does feel agitated. Patient was contacted [facility] and they recommended admission here for acu te treatment for his opiate and alcohol dependence. Patient's last drink was last evening. [facility] Medical History Abscess Alcohol abuse Alcohol abuse Anxiety and depression Herniated disc Narcotic abuse in remission Staph skin infection Tobacco use Withdrawn from alcohol detoxification program Home Medications cetirizine 10 mg PO DAILY 04/06/21 [History Last Taken Unknown] buspirone 10 mg PO BID 02/14/22 [History Last Taken Unknown] citalopram 40 mg PO DAILY 02/14/22 [History Last Taken Unknown] fluticasone propionate 2 spray INTRANASAL DAILY 02/14/22 [History Last Taken Unknown] lisdexamfetamine [Vyvanse] 70 mg PO DAILY 02/14/22 [History Last Taken Unknown] Allergy/AdvReac Type Severity Reaction Status Date / Time No Known Allergies Allergy Verified 02/14/22 11:44 Family History (Updated 02/14/22 @ 13:[address] Red Campoverde DO) Mother Asthma Father Diabetes Alcohol abuse Social History household members: spouse Smoking Status: Current every day smoker tobacco type: e-cigarettes alcohol intake: current Alcohol type: beer details: Patient drinks 8-10, 12-16 ounce beers daily, intake increasing x 5 years. substance use type: former substance user Date of last use: Reports percocet narcotic abuse history. and opiates ROS ROS Narrative Anxious. Agitated. All review of systems were negative except as mentioned above in the history of present illness and the other review of systems. Vital Signs Vital Signs Vital Signs: 02/14/22 11:42 02/14/22 12:58 Temperature 36.4 C L 36.6 C Temperature Source Temporal Temporal Pulse Rate 73 89 Respiratory Rate 18 16 Blood Pressure 132/74 H 132/74 H Blood Pressure Mean 93 93 Pulse Ox 100 98 Oxygen Delivery Method Room Air Room Air Weight Weight: 63.503 kg Body Mass Index (BMI) 21.9 Physical Exam Const alert General Appearance: cooperative Resp normal respiratory effort, no retractions, no use of accessory muscles and clear to auscultation bilaterally Cardio regular rate, regular rhythm, S1 normal heart sound and S2 normal heart sound GI normal to inspection, nondistended, normoactive bowel sounds, soft to palpation, non-tender and non-distended Extremity normal to inspection Neuro Sensorium / Orientation: awake and alert Psych affect normal Results Lab / Micro Data Result Diagrams: 02/14/22 12:10 02/14/22 12:10 Labs: Laboratory Results - last 24 hr 02/14/22 12:10: WBC 6.9, RBC 4.11 L, Hgb 12.9 L, Hct 38.9 L, MCV 94.6 H, MCH 31.4, MCHC 33.2, RDW Std Deviation 40.3, RDW Coeff of [place] 11.8, Plt Count 239, MPV 9.3, Immature Gran % (Auto) 0.300, Neut % (Auto) 60.5, Lymph % (Auto) 29.0, [place] % (Auto) 8.3, Eos % (Auto) 1.3, Baso % (Auto) 0.6, Absolute Neuts (auto) 4.2, Absolute Lymphs (auto) 1.99, Nucleated RBC % 0 02/14/22 12:10: Sodium 133 L, Potassium 4.3, Chloride 99, Carbon Dioxide 31.0, Anion Gap 3 L, BUN 12, Creatinine 0.72, Estim Creat Clear Calc 122.50, Est GFR (MDRD) Af Amer 154, Est GFR (MDRD) Non-Af 128, BUN/Creatinine Ratio 16.6, Glucose 82, Calcium 8.5, Total Bilirubin 0.20, AST 16, ALT 23, Alkaline Phosphatase 62, Total Protein 6.9, Albumin 3.8, Globulin 3.1, Albumin/Globulin Ratio 1.2 02/14/22 12:10: Ethyl Alcohol 111.0 Assessment & Plan Assessment/Plan (1) Alcohol dependence: QUALIFIERS: Substance use status: uncomplicated Qualified Code(s): F10.20 - Alcohol dependence, uncomplicated (2) Opioid dependence: QUALIFIERS: Substance use status: uncomplicated Qualified Code(s): F11.20 - Opioid dependence, uncomplicated PLAN: 1. Opiate dependence * Patient takes Suboxone at home. Denies any fentanyl or heroin use. Seems that patient's symptoms are mostly related with opiate withdrawal as when he stopped taking the Suboxone, he becomes agitated. * Patient will be on buprenorphine taper. * Addiction medicine to evaluate. Tentatively the plan was for the patient to go to the residential program once he completed discharge. 2. Alcohol dependence * As mentioned previously, I feel that most of his symptoms are prior related with his opiate withdrawal. Patient does drink a fair amount but he has gone days without drinking alcohol and, per his description, sounds like he does ok ay. 3. Tobacco abuse * Patient states that he only smokes a few cigarettes per day due to the head buzz that he gets. Patient be on a nicotine patch 7 mg daily. Charges/Coding Visit Charges Inpatient E&M: 88661 Subs Hosp L2
[2022-02-14 13:31] VITALS: BMI 20.9
[2022-02-14 13:45] VITALS: BP 120/78; PULSE 67; RESP 18; TEMP 36.8; O2SAT 100
[2022-02-14] MEDS: Phenobarbital 32.4 MG Tablet 64.8 MG PO ×3 (15:06→21:10)
[2022-02-14 16:00] VITALS: BP 116/59; PULSE 67; RESP 18; TEMP 36.7; O2SAT 100
[2022-02-14] MEDS: cloNIDine HCl 0.1 MG Tablet PO (16:06)
[2022-02-14] MEDS: hydrOXYzine PAM 25 MG Capsule 50 MG PO (16:06)
[2022-02-14] MEDS: Buprenorphine HCl 2 MG TAB.SUBL SL (19:09)
[2022-02-14] MEDS: busPIRone 5 MG Tablet 10 MG PO (21:10)
[2022-02-14] MEDS: traZODone 100 MG Tablet PO (21:15)
[2022-02-14 22:00] VITALS: BP 105/70; PULSE 60; RESP 16; TEMP 36.8; O2SAT 98
[2022-02-15] VITALS (7 sets, daily range): BP systolic 101–107; BP diastolic 57–70; PULSE 67–73; RESP 16–18; TEMP 36.4–37; O2SAT 97–99
[2022-02-15] MEDS: Phenobarbital 32.4 MG Tablet 64.8 MG PO ×6 (00:51→21:45)
[2022-02-15] MEDS: Buprenorphine HCl 2 MG TAB.SUBL SL ×3 (03:21→19:03)
--- NOTE | 2022-02-15 07:35 | PN.HOSP_ITS ---
Subjective Subjective Feels well. No events overnight. Objective Data Objective Data Vital Signs: Vital Signs Temp Pulse Resp BP Pulse Ox 37.0 C 68 16 101/57 L 97 02/15/22 03:29 02/15/22 03:29 02/15/22 03:29 02/15/22 03:29 02/15/22 03:29 Oxygen Delivery Method Room Air Weight: 60.6 kg Body Mass Index (BMI) 20.9 Intake & Output: Intake and Output for Last 24 Hours 02/13/22 02/14/22 02/15/22 23:59 23:59 23:59 Intake Total 480 / 480 500 / 500 Balance 480 / 480 500 / 500 Lab / Micro Data Result Diagrams: 02/14/22 12:10 02/14/22 12:10 Labs: Laboratory Results - last 24 hr 02/14/22 12:10: WBC 6.9, RBC 4.11 L, Hgb 12.9 L, Hct 38.9 L, MCV 94.6 H, MCH 31.4, MCHC 33.2, RDW Std Deviation 40.3, RDW Coeff of [place] 11.8, Plt Count 239, MPV 9.3, Immature Gran % (Auto) 0.300, Neut % (Auto) 60.5, Lymph % (Auto) 29.0, [place] % (Auto) 8.3, Eos % (Auto) 1.3, Baso % (Auto) 0.6, Absolute Neuts (auto) 4.2, Absolute Lymphs (auto) 1.99, Nucleated RBC % 0 02/14/22 12:10: Sodium 133 L, Potassium 4.3, Chloride 99, Carbon Dioxide 31.0, Anion Gap 3 L, BUN 12, Creatinine 0.72, Estim Creat Clear Calc 122.50, Est GFR (MDRD) Af Amer 154, Est GFR (MDRD) Non-Af 128, BUN/Creatinine Ratio 16.6, Gluco se 82, Calcium 8.5, Total Bilirubin 0.20, AST 16, ALT 23, Alkaline Phosphatase 62, Total Protein 6.9, Albumin 3.8, Globulin 3.1, Albumin/Globulin Ratio 1.2 02/14/22 12:10: Ethyl Alcohol 111.0 Physical Exam Const alert and no apparent distress HEENT head/scalp atraumatic Head and Scalp: normocephalic Psych affect normal Assessment & Plan Assessment/Plan (1) Alcohol dependence: QUALIFIERS: Substance use status: uncomplicated Qualified Code(s): F10.20 - Alcohol dependence, uncomplicated (2) Opioid dependence: QUALIFIERS: Substance use status: uncomplicated Qualified Code(s): F11.20 - Opioid dependence, uncomplicated PLAN: 1. Opiate dependence * Patient takes Suboxone (illicitly) at home. Denies any fentanyl or heroin use. Seems that patient's symptoms are mostly related with opiate withdrawal as when he stopped taking the Suboxone, he becomes agitated. * Patient will be on buprenorphine taper. * Addiction medicine to evaluate. Tentatively the plan was for the patient to go to the residential program once he completed discharge. 2. Alcohol dependence * As mentioned previously, I feel that most of his symptoms are prior related with his opiate withdrawal. Patient does drink a fair amount but he has gone days without drinking alcohol and, per his description, sounds like he does okay. 3. Tobacco abuse * Patient states that he only smokes a few cigarettes per day due to the head buzz that he gets. Patient be on a nicotine patch 7 mg daily. Charges/Coding Visit Charges Inpatient E&M: 52170 Subs Hosp L1
[2022-02-15] MEDS: Folic Acid 1 MG Tablet PO (07:40)
[2022-02-15] MEDS: Thiamine Hydrochloride 100 MG Tablet PO (07:40)
[2022-02-15] MEDS: Loratadine 10 MG Tablet PO (09:29)
[2022-02-15] MEDS: Citalopram 40 MG TABLET PO (09:29)
[2022-02-15] MEDS: busPIRone 5 MG Tablet 10 MG PO ×2 (09:29→21:41)
[2022-02-15] MEDS: Fluticasone 0.05% 1 SPRAY NASAL.SRY 2 SPRAY NASAL (09:32)
--- NOTE | 2022-02-15 10:45 | ADDICTION ---
This ghost writer met with PT to conduct ASAM, MSE, AUDIT assessments and to plan for d/c. PT A+Ox4 and participated actively. All assessments completed, faxed to [facility] and placed in PT's chart. PT plans to f/u with [facility] for residential treatment services. [facility] will provide transportation post d/c from [facility]. Shannon will pick him up 02/17 @1:00pm.
[2022-02-15 17:02] LABS: Amphetamine Urine VISTA NEGATIVE (<1000 ng/mL); Barbiturate Urine VISTA POSITIVE (< 200 ng/mL); Benzodiazepine Urine VISTA NEGATIVE (< 200 ng/mL); Cocaine Urine VISTA NEGATIVE (< 300 ng/mL); Ecstacy Urine VISTA NEGATIVE (< 500 ng/mL); Methadone Urine VISTA NEGATIVE (< 300 ng/mL); PCP Urine VISTA NEGATIVE (< 25 ng/mL); THC Urine VISTA NEGATIVE (< 50 ng/mL); Vista UDS pH Range 6
[2022-02-15] MEDS: Gabapentin 300 MG Capsule PO (21:41)
[2022-02-15] MEDS: 0.9% Saline Lock 10 ML Syringe IV (21:46)
[2022-02-15] MEDS: traZODone 100 MG Tablet PO (22:39)
[2022-02-16] VITALS (7 sets, daily range): BP systolic 103–115; BP diastolic 59–89; PULSE 68–88; RESP 16; TEMP 36.4–37; O2SAT 95–100
[2022-02-16] MEDS: Phenobarbital 32.4 MG Tablet 64.8 MG PO ×6 (01:55→21:20)
[2022-02-16] MEDS: Buprenorphine HCl 2 MG TAB.SUBL SL ×3 (03:36→18:46)
--- NOTE | 2022-02-16 08:25 | PN.HOSP_ITS ---
Subjective Subjective Feels good. No events overnight Objective Data Objective Data Vital Signs: Vital Signs Temp Pulse Resp BP Pulse Ox 36.9 C 68 16 103/61 96 02/16/22 03:38 02/16/22 03:38 02/16/22 03:38 02/16/22 03:38 02/16/22 03:43 Oxygen Delivery Method Room Air Weight: 60.6 kg Body Mass Index (BMI) 20.9 Intake & Output: Intake and Output for Last 24 Hours 02/14/22 02/15/22 02/16/22 23:59 23:59 23:59 Intake Total 480 / 480 1530 / 1530 Balance 480 / 480 1530 / 1530 Lab / Micro Data Result Diagrams: 02/14/22 12:10 02/14/22 12:10 Labs: Laboratory Results - last 24 hr 02/15/22 16:30: Urine Opiates Screen NEGATIVE, Urine Methadone Screen NEGATIVE, Ur Barbiturates Screen POSITIVE H, Ur Phencyclidine Scrn NEGATIVE, Ur Amphetamines Screen NEGATIVE, MDMA (Ecstasy) Screen NEGATIVE, U Benzodiazepines Scrn NEGATIVE, Urine Cocaine Screen NEGATIVE, U Cannabinoids Screen NEGATIVE, Ur Drug Screen Comment Physical Exam Const alert and no apparent distress HEENT head/scalp atraumatic Head and Scalp: normocephalic Psych affect normal Assessment & Plan Assessment/Plan (1) Alcohol dependence: QUALIFIERS: Substance use status: uncomplicated Qualified Code(s): F10.20 - Alcohol dependence, uncomplicated (2) Opioid dependence: QUALIFIERS: Substance use status: uncomplicated Qualified Code(s): F11.20 - Opioid dependence, uncomplicated PLAN: 1. Opiate dependence * Patient takes Suboxone (illicitly) at home. Denies any fentanyl or heroin use. Seems that patient's symptoms are mostly related with opiate withdrawal as when he stopped taking the Suboxone, he becomes agitated. * Patient will be on buprenorphine taper. * Addiction medicine to evaluate. * Plan for [facility] residential program 02/17 2. Alcohol dependence * As mentioned previously, I feel that most of his symptoms are prior related with his opiate withdrawal. Patient does drink a fair amount but he has gone days without drinking alcohol and, per his description, sounds like he does okay. 3. Tobacco abuse * Patient states that he only smokes a few cigarettes per day due to the head buzz that he gets. Patient be on a nicotine patch 7 mg daily. Charges/Coding Visit Charges Inpatient E&M: 26225 Subs Hosp L1
[2022-02-16] MEDS: Fluticasone 0.05% 1 SPRAY NASAL.SRY 2 SPRAY NASAL (08:57)
[2022-02-16] MEDS: Citalopram 40 MG TABLET PO (08:57)
[2022-02-16] MEDS: Folic Acid 1 MG Tablet PO (08:57)
[2022-02-16] MEDS: Gabapentin 300 MG Capsule PO ×2 (08:57→18:46)
[2022-02-16] MEDS: Loratadine 10 MG Tablet PO (08:57)
[2022-02-16] MEDS: busPIRone 5 MG Tablet 10 MG PO ×2 (08:57→21:19)
[2022-02-16] MEDS: Thiamine Hydrochloride 100 MG Tablet PO (08:57)
[2022-02-16] MEDS: hydrOXYzine PAM 25 MG Capsule 50 MG PO ×2 (11:20→21:20)
[2022-02-17] MEDS: traZODone 100 MG Tablet PO (00:32)
[2022-02-17] MEDS: hydrOXYzine PAM 25 MG Capsule 50 MG PO ×2 (01:32→06:05)
[2022-02-17] MEDS: Phenobarbital 32.4 MG Tablet 64.8 MG PO ×2 (03:05→09:47)
[2022-02-17] MEDS: Gabapentin 300 MG Capsule PO (03:05)
[2022-02-17 03:20] VITALS: BP 107/79; PULSE 61; RESP 16; TEMP 36.4; O2SAT 94
[2022-02-17] MEDS: Buprenorphine HCl 2 MG TAB.SUBL SL (06:05)
--- NOTE | 2022-02-17 09:18 | PCM.DC ---
Discharge Instructions Diet Discharge Diet: No restrictions Activity Discharge Activity: Return to Normal Activity Follow Up Care Test Results: Test results from this visit will be discussed in further detail at your follow-up appointment, if applicable. Discharge Plan Admission Admit Date/Time: 02/14/22 13:12 Primary Reason for Your Visit: Opiate and alcohol withdrawal Attending Provider: Red Campoverde Primary Care Provider: Louie Rowe Discharge Orders/Prescriptions Prescriptions: Continued cetirizine 10 mg tablet 10 mg PO DAILY RF: 0 citalopram 40 mg tablet 40 mg PO DAILY RF: 0 buspirone 10 mg tablet 10 mg PO BID RF: 0 fluticasone propionate 50 mcg/actuation spray,suspension 2 spray INTRANASAL DAILY RF: 0 Vyvanse 70 mg capsule 70 mg PO DAILY RF: 0 Referrals / Follow Up: Louie Rowe MD [Primary Care Provider] - Disposition Disposition (needs filled in before D/C Order can be placed): Home, Self Care
--- NOTE | 2022-02-17 09:19 | PCM.DC.SUM ---
Providers Date of Admission: 02/14/22 Primary Care Physician: Dr. Louie Rowe MD Reason For Visit: OPIATE AND ALCOHOL WD Diagnosis Discharge Diagnosis (1) Alcohol dependence: Status: Acute Code(s): F10.20 - Alcohol dependence, uncomplicated Qualifiers: Substance use status: uncomplicated Qualified Code(s): F10.20 - Alcohol dependence, uncomplicated (2) Opioid dependence: Status: Acute Code(s): F11.20 - Opioid dependence, uncomplicated Qualifiers: Substance use status: uncomplicated Qualified Code(s): F11.20 - Opioid dependence, uncomplicated Medications at Discharge Home Medications cetirizine 10 mg PO DAILY 04/06/21 Vyvanse 70 mg PO DAILY 02/14/22 buspirone 10 mg PO BID 02/14/22 citalopram 40 mg PO DAILY 02/14/22 fluticasone propionate 2 spray INTRANASAL DAILY 02/14/22 Hospital Course Operations None Procedures None Summary of Care Provided Minutes Spent on Discharge: Hospital Course: This is a 41-year-old male presents with desire for detoxification. Patient consuming large quantities of alcohol up to 8-12 beers per day but also was taking diverted Suboxone. Patient was initiated on buprenorphine and phenobarbital. Patient's course was uncomplicated. Patient was seen by addiction medicine and plan is for the patient to go to residential program today. Today, the patient has completed his 72-hour treatment. Physical Exam Const alert and no apparent distress General Appearance: cooperative and comfortable HEENT normocephalic and head/scalp atraumatic Psych affect normal Weight / BMI Weight Weight: 60.6 kg Body Mass Index (BMI) 20.9 ABG / Lab / Microbiology Data Result Diagrams: 02/14/22 12:10 02/14/22 12:10 D/C Instructions Discharge Diet: No restrictions Meaningful Use Info Meaningful Use Diagnoses (Choose all that apply): None applicable Discharge Plan Admission Admit Date/Time: 02/14/22 13:12 Primary Reason for Your Visit: Opiate and alcohol withdrawal Attending Provider: Red Campoverde Primary Care Provider: Louie Rowe Discharge Orders/Prescriptions Prescriptions: Continued cetirizine 10 mg tablet 10 mg PO DAILY RF: 0 citalopram 40 mg tablet 40 mg PO DAILY RF: 0 buspirone 10 mg tablet 10 mg PO BID RF: 0 fluticasone propionate 50 mcg/actuation spray,suspension 2 spray INTRANASAL DAILY RF: 0 Vyvanse 70 mg capsule 70 mg PO DAILY RF: 0 Referrals / Follow Up: Louie Rowe MD [Primary Care Provider] - Disposition Disposition (needs filled in before D/C Order can be placed): Home, Self Care Charges/Coding Visit Charges Inpatient E&M: 04326 Disch Hosp
[2022-02-17 09:35] VITALS: BP 116/82; PULSE 73; RESP 16; TEMP 36.7; O2SAT 100
[2022-02-17] MEDS: Thiamine Hydrochloride 100 MG Tablet PO (09:40)
[2022-02-17] MEDS: Fluticasone 0.05% 1 SPRAY NASAL.SRY 2 SPRAY NASAL (09:40)
[2022-02-17] MEDS: busPIRone 5 MG Tablet 10 MG PO (09:40)
[2022-02-17] MEDS: Citalopram 40 MG TABLET PO (09:40)
[2022-02-17] MEDS: Folic Acid 1 MG Tablet PO (09:40)
[2022-02-17] MEDS: Loratadine 10 MG Tablet PO (09:40)
== END 2022-02-17 13:10 | disposition home or self-care (01) | DRG 897 ==
LOC: ED 12:22 → PCU 13:41
PROVIDERS: Emergency Provider Emergency Medicine; PCP Family Medicine
DX: F10.20 Alcohol dependence, uncomplicated (principal); F11.20 Opioid dependence, uncomplicated; F17.210 Nicotine dependence, cigarettes, uncomplicated; F41.9 Anxiety disorder, unspecified; Y90.5 Blood alcohol level of 100-119 mg/100 ml
CPT/HCPCS: 80053; 80307; 82077; 85025; 99284; A4216